=== PATIENT | female | born 1960 | race Caucasian/White ===

== ENCOUNTER 2018-01-24 08:37 | Inpatient (IN) | payer SELFPAY ==
[~2018-01-24] VITALS: Ht 157.5 cm; Wt 74.0 kg
--- NOTE | ~2018-01-24 | EKG ---
[place], [place] ELECTROCARDIOGRAM REPORT NAME: HELEN HARDING UNIT #: [id number] ROOM: 403 DOCTOR: RYAN DRAFT REPORT BIRTHDATE: [birth year] [facility] Test Date: 2018-01-24 Test Time: 11:43:13 Pat Name: HELEN HARDING Department: Room: 403 Gender: F Pipe Connector: JANE : 1960 Requested By: ALFREDO BUSTAMANTE Order Number: [id number] Reading MD: Lonnie Roman MD Measurements Intervals [place] Rate: 67 P: 21 VT: 177 QRS: 43 QRSD: 68 T: 45 QT: 393 QTc: 415 Interpretive Statements Sinus rhythm Borderline low voltage, limb leads Electronically Signed On 01-25-2018 9:38:43 PDT by Lonnie Roman MD CM:EKGRPT:ELECTROCARDIOGRAM REPORT [id number] ALFREDO DAVIS DRAFT REPORT ALFREDO BUSTAMANTE M.D.
--- NOTE | ~2018-01-24 | EKG ---
[place], [place] ELECTROCARDIOGRAM REPORT NAME: HELEN HARDING UNIT #: [id number] ROOM: 403 DOCTOR: RYAN DRAFT REPORT BIRTHDATE: [birth year] [facility] Test Date: 2018-01-24 Test Time: 08:50:18 Pat Name: HELEN HARDING Department: Room: 403 Gender: F Director Payer: KURT : 1960 Requested By: ALFREDO BUSTAMANTE Order Number: [id number] Reading MD: Lonnie Roman MD Measurements Intervals [place] Rate: 89 P: 14 IN: 160 QRS: 50 QRSD: 78 T: 40 QT: 355 QTc: 432 Interpretive Statements Sinus rhythm Borderline low voltage Normal QTc interval Electronically Signed On 01-25-2018 9:38:22 PDT by Lonnie Roman MD CM:EKGRPT:ELECTROCARDIOGRAM REPORT [id number] ALFREDO DAVIS DRAFT REPORT ALFREDO BUSTAMANTE M.D.
--- NOTE | ~2018-01-24 | CON ---
[place], [place] REPORT OF CONSULTATION NAME: HELEN HARDING UNIT #: [id number] ROOM: 403 DOCTOR: POLLY MAZARIEGOS MD BIRTHDATE: [birth year] DOS: 01/24/2018 GASTROENDOSCOPIC CONSULTATION REPORT HISTORY OF PRESENT ILLNESS: This is a 57-year-old patient who has presented with chief complaint of atypical chest pain, left pectoral pain. She says she was awakened with it, it was radiating to her left shoulder. She was expressing concern that she had cold. At the time of admission to the Emergency Room, her white blood cell was 9, H and H of 13 and 45. Differential within normal limit. Lactic acid normal. INR 0.9. Comprehensive metabolic panel, electrolyte balance, troponin negative; lipase 143. Chest x-ray was unremarkable. Troponin repeatedly negative. PAST MEDICAL HISTORY: History of gastroesophageal reflux disease, chronic constipation, old history of DVT, gastritis. PAST SURGICAL HISTORY: Laminectomy, hernia repair, gallbladder, and splenectomy. SOCIAL HISTORY: Smoker. Social alcohol consumer. Consumes one can of carbonated soda daily. FAMILY HISTORY: Noncontributory. MEDICATION: List has been reviewed including prednisone. ALLERGIES: STEROIDS, VIOXX, ____. MEDICATIONS: At home has included ibuprofen in addition to aspirin. Ibuprofen has been b.i.d. REVIEW OF SYSTEMS: HEENT: Denies double vision, blurred vision. RESPIRATORY: Denies acute shortness of breath. CARDIOVASCULAR: Denies acute chest pain, atypical chest pain, however. DIGESTIVE SYSTEM: No hematemesis, no hematochezia. PHYSICAL EXAMINATION: GENERAL: Nontoxic patient. HEENT: Head normocephalic, nontraumatic. Eyes: Pupils round, reactive. Sclerae nonicteric. Mouth and buccal mucosa benign. NECK: Supple, no thyromegaly, no cervical lymphadenopathy. CHEST: Symmetric anatomy, equal expansion. No wheeze, no rhonchi. HEART: Normal sinus rhythm, no gallop, no murmur. ABDOMEN: Obese, soft. No hepato-organomegaly. Bowel sounds present. No pulsatile mass. EXTREMITIES: Dry. No cyanosis, no pedal edema. NEUROLOGIC: Fully alert, oriented to time, place, person. IMPRESSION: Atypical chest pain, ruling out hiatal hernia, reflux as etiology, [place], [place] REPORT OF CONSULTATION NAME: HELEN HARDING UNIT #: [id number] ROOM: 403 DOCTOR: DELILAH NARAYANAN,POLLY BIRTHDATE: [birth year] ruling out gastritis, particularly secondary to ibuprofen and aspirin intake in addition to contribution for nicotine and caffeinated beverages, old history of deep venous thrombosis and pulmonary embolism. PLAN AND DISCUSSION: Protonix 40 mg IV every day, Reglan 5 mg a.c. dinner. Continuation with cardiac diet and pain management. Organizing outpatient endoscopy after she is discharged. Other adjunctive diagnoses as outlined in paragraph past medical, surgical history. Labs reviewed, records reviewed. As far as GI system is concerned, she is okay for outpatient followup. POLLY MAZARIEGOS MD CM:CONSTR:REPORT OF CONSULTATION 1637 01/24/18 [id number] interface
--- NOTE | ~2018-01-24 | EKG ---
[place], [place] ELECTROCARDIOGRAM REPORT NAME: HELEN HARDING UNIT #: [id number] ROOM: 403 DOCTOR: RYAN DRAFT REPORT BIRTHDATE: [birth year] [facility] Test Date: 2018-01-24 Test Time: 14:49:21 Pat Name: HELEN HARDING Department: Room: 403 Gender: F Frame Nailer: Karena Mane : 1960 Requested By: ALFREDO BUSTAMANTE Order Number: [id number] Reading MD: Lonnie Roman MD Measurements Intervals [place] Rate: 63 P: 54 FL: 198 QRS: 47 QRSD: 76 T: 49 QT: 421 QTc: 431 Interpretive Statements Sinus rhythm Low voltage, extremity leads Probable anteroseptal infarct, old Baseline wander in lead(s) I,aVR,aVL,V4,V5 Electronically Signed On 01-26-2018 9:28:45 PDT by Lonnie Roman MD CM:EKGRPT:ELECTROCARDIOGRAM REPORT [id number] ALFREDO DAVIS DRAFT REPORT ALFREDO BUSTAMANTE M.D.
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
[~2018-01-24 08:37] MED LIST: ASPIRIN CHEWABL81 MG PO; CLINDAMYCIN HC300 MG PO; Cleocin150 MG PO; EFFEXOR XR37.5 M1 PO; EFFEXOR75 MG PO; IRON325 M1 PO; LEVOFLOXACIN500 MG PO; LEVOTHROID0.075 MG PO; MECLIZINE HCL25 M2 PO; MOTRIN800 MG PO; NEXIUM20 MG PO; NEXIUM40 MG PO; PEPCID20 MG PO; PRAVACHOL10 MG PO; PRAVACHOL20 MG PO; PREVACID30 M1 PO; PROTONIX40 MG PO; TESSALON PERLE200 MG PO; TRAZODO50 MG PO; ULTRAM50 MG PO; VERAPAMIL HCL40 MG PO; XANAX0.25 MG PO; ZITHROMAX250 MG PO
[2018-01-24 08:38] VITALS: BP 133/80
[2018-01-24] MEDS ORDERED: IBU800 M2 PO (08:51)
[2018-01-24 08:58] LABS: BASO # 0.1 10*3/uL (0.0-0.1); BASO % 0.6 % (0.0-1.0); EOS # 0.3 10*3/uL (0.0-0.4); EOS % 3.1 % (1.0-4.0); HEMATOCRIT 45.7 % (37.0-47.0); HEMOGLOBIN 13.9 g/dl (12.0-16.0); LYMPH % 42.4 % (27.0-41.0); MEAN CORPUSCULAR HGB 29.2 pg (27.0-31.0); MEAN CORPUSCULAR HGB CONC 30.4 g/dl (33.0-37.0); MONO # 0.6 10*3/uL (0.1-1.0); MONO % 6.7 % (3.0-9.0); NEUT # 4.4 10*3/uL (2.3-7.9); NEUT % 46.8 % (47.0-73.0); PLATELET COUNT AUTOMATED 662 10*3/uL (130-400); RED BLOOD COUNT 4.76 10*6/uL (4.10-5.10); RED CELL DISTRI WIDTH 14.9 % (0-14.5); WHITE BLOOD COUNT 9.4 10*3/uL (4.8-10.8)
[2018-01-24 09:10] LABS: ACT PARTIAL THROMBO TIME 25.4 SECONDS (20.8-31.5); INTERNATIONAL NORM RATIO 0.9 (2.0-3.5)
[2018-01-24 09:13] LABS: ALBUMIN 3.1 gm/dl (3.1-4.5); BUN 8 mg/dl (7-24); CHLORIDE 103 mmol/L (98-107); CREATININE 0.89 mg/dL (0.55-1.02); POTASSIUM 4.3 mmol/L (3.5-5.1); SGOT/AST 35 IU/L (3-35); SGPT/ALT 44 U/L (12-78); SODIUM 141 mmol/L (136-145); TOTAL PROTEIN 8.1 gm/dL (6.4-8.2)
[2018-01-24 09:15] LABS: ALKALINE PHOSPHATASE 92 U/L (45-117)
[2018-01-24 09:16] LABS: TROPONIN I < 0.015 ng/ml (<0.045)
[2018-01-24 10:04] VITALS: BP 145/86
[2018-01-24 10:39] VITALS: BP 136/75
[2018-01-24 12:00] VITALS: BP 124/74
[2018-01-24 16:00] VITALS: BP 99/45
[2018-01-24 20:00] VITALS: BP 101/58; BP 102/58; BP 131/64
[2018-01-25] VITALS: BP 103/52
[2018-01-25 06:10] LABS: BASO # 0.1 10*3/uL (0.0-0.1); BASO % 0.6 % (0.0-1.0); EOS # 0.3 10*3/uL (0.0-0.4); EOS % 3.2 % (1.0-4.0); HEMOGLOBIN 12.9 g/dl (12.0-16.0); LYMPH # 4.2 10*3/uL (1.3-4.4); LYMPH % 42.1 % (27.0-41.0); MEAN CELL VOLUME 94.4 fl (81.0-99.0); MEAN CORPUSCULAR HGB CONC 30.7 g/dl (33.0-37.0); MEAN PLATELET VOLUME 9.1 fl (9.6-12.3); MONO # 0.8 10*3/uL (0.1-1.0); MONO % 7.7 % (3.0-9.0); NEUT # 4.6 10*3/uL (2.3-7.9); NEUT % 46.2 % (47.0-73.0); PLATELET COUNT AUTOMATED 613 10*3/uL (130-400); RED BLOOD COUNT 4.45 10*6/uL (4.10-5.10); RED CELL DISTRI WIDTH 14.9 % (0-14.5)
[2018-01-25 06:31] LABS: CHLORIDE 104 mmol/L (98-107); POTASSIUM 4.7 mmol/L (3.5-5.1); SODIUM 139 mmol/L (136-145)
[2018-01-25 06:47] LABS: ALKALINE PHOSPHATASE 88 U/L (45-117); BUN 10 mg/dl (7-24); CHOLESTEROL 231 mg/dL (<200); CREATININE 0.93 mg/dL (0.55-1.02); FREE T4 0.89 ng/dl (0.76-1.46); HDL CHOLESTEROL 31 mg/dl (40-60); LDL CHOLESTEROL 122 mg/dL (9-159); PHOSPHOROUS 3.3 mg/dL (2.5-4.9); SGOT/AST 21 IU/L (3-35); SGPT/ALT 40 U/L (12-78); TOTAL PROTEIN 7.6 gm/dL (6.4-8.2); TRIGLYCERIDES 390 mg/dl (<150); VLDL CHOLESTEROL 78 mg/dL (6-40)
[2018-01-25 07:46] LABS: VITAMIN D, 25-HYDROXY 34.3 ng/mL (30-100)
[2018-01-25 08:00] VITALS: BP 141/61
[2018-01-25 12:00] VITALS: BP 131/75
[2018-01-25 16:00] VITALS: BP 131/80
[2018-01-25 20:00] VITALS: BP 135/77
[2018-01-26] VITALS: BP 102/67
[2018-01-26 06:00] LABS: BASO # 0.1 10*3/uL (0.0-0.1); BASO % 0.6 % (0.0-1.0); EOS # 0.4 10*3/uL (0.0-0.4); EOS % 3.9 % (1.0-4.0); HEMATOCRIT 43.3 % (37.0-47.0); HEMOGLOBIN 13.2 g/dl (12.0-16.0); LYMPH % 38.1 % (27.0-41.0); MEAN CELL VOLUME 96.2 fl (81.0-99.0); MEAN CORPUSCULAR HGB 29.3 pg (27.0-31.0); MEAN CORPUSCULAR HGB CONC 30.5 g/dl (33.0-37.0); MEAN PLATELET VOLUME 9.1 fl (9.6-12.3); MONO # 0.8 10*3/uL (0.1-1.0); MONO % 7.9 % (3.0-9.0); NEUT # 5.2 10*3/uL (2.3-7.9); NEUT % 49.1 % (47.0-73.0); PLATELET COUNT AUTOMATED 629 10*3/uL (130-400); RED CELL DISTRI WIDTH 15.1 % (0-14.5); WHITE BLOOD COUNT 10.6 10*3/uL (4.8-10.8)
[2018-01-26 06:02] LABS: BUN 11 mg/dl (7-24); CHLORIDE 104 mmol/L (98-107); CREATININE 0.87 mg/dL (0.55-1.02); POTASSIUM 4.9 mmol/L (3.5-5.1); SODIUM 140 mmol/L (136-145)
[2018-01-26 08:00] VITALS: BP 127/66
[2018-01-26] MEDS ORDERED: XARE20MG PO (09:31)
[2018-01-26] MEDS ORDERED: METOCLOPRAMIDE H5 M1 PO (09:31)
== END 2018-01-26 11:29 | disposition home or self-care (01) | DRG 313 ==
LOC: ED 08:37 → 4E 10:37
PROVIDERS: Emergency Medicine; Internal Medicine
DX: R07.89 Other chest pain (principal); J93.9 Pneumothorax, unspecified; Z86.718 Personal history of other venous thrombosis and embolism; D47.3 Essential (hemorrhagic) thrombocythemia; R00.0 Tachycardia, unspecified; R05 Cough; I10 Essential (primary) hypertension; R73.9 Hyperglycemia, unspecified; I00 Rheumatic fever without heart involvement; K21.9 Gastro-esophageal reflux disease without esophagitis; J06.9 Acute upper respiratory infection, unspecified; G43.009 Migraine without aura, not intractable, without status migrainosus; E03.9 Hypothyroidism, unspecified; E66.9 Obesity, unspecified; F41.9 Anxiety disorder, unspecified; F32.9 Major depressive disorder, single episode, unspecified; M79.7 Fibromyalgia; T39.315A Adverse effect of propionic acid derivatives, initial encounter; T39.015A Adverse effect of aspirin, initial encounter; Y92.89 Other specified places as the place of occurrence of the external cause; Z72.0 Tobacco use; Z78.9 Other specified health status; Z71.6 Tobacco abuse counseling; Z88.8 Allergy status to other drugs, medicaments and biological substances; Z79.899 Other long term (current) drug therapy; Z79.82 Long term (current) use of aspirin; Z90.49 Acquired absence of other specified parts of digestive tract; Z86.711 Personal history of pulmonary embolism; Z68.31 Body mass index [BMI] 31.0-31.9, adult

== ENCOUNTER 2018-06-25 18:52 | Emergency (ER) | payer SELFPAY ==
[~2018-06-25] VITALS: Ht 157.4 cm; Wt 73.5 kg
[2018-06-25 18:52] VITALS: BP 200/102
[~2018-06-25 18:52] MED LIST changes: +IBU800 M2 PO; +METOCLOPRAMIDE H5 M1 PO; +XARE20MG PO
== END 2018-06-25 21:11 | disposition home or self-care (01) ==
LOC: ED 18:52
DX: S16.1XXA Strain of muscle, fascia and tendon at neck level, initial encounter (principal); S39.012A Strain of muscle, fascia and tendon of lower back, initial encounter; S70.312A Abrasion, left thigh, initial encounter; S70.212A Abrasion, left hip, initial encounter; S79.912A Unspecified injury of left hip, initial encounter; S09.90XA Unspecified injury of head, initial encounter; E03.9 Hypothyroidism, unspecified; I10 Essential (primary) hypertension; F17.200 Nicotine dependence, unspecified, uncomplicated; Z88.1 Allergy status to other antibiotic agents; Z88.6 Allergy status to analgesic agent; Z88.8 Allergy status to other drugs, medicaments and biological substances; Z79.899 Other long term (current) drug therapy; Z79.82 Long term (current) use of aspirin; Z86.718 Personal history of other venous thrombosis and embolism; W10.9XXA Fall (on) (from) unspecified stairs and steps, initial encounter; Y93.89 Activity, other specified; Y92.89 Other specified places as the place of occurrence of the external cause; Y99.8 Other external cause status

== ENCOUNTER 2024-02-02 06:06 | Emergency (ER) | payer SELFPAY ==
[~2024-02-02] VITALS: Ht 157.4 cm; Wt 83.9 kg
[2024-02-02] MEDS ORDERED: MORPHINE Sulfate 2 MG/ML SYR IV ONE (06:30)
[2024-02-02 06:34] LABS: BASO # 0.1 10*3/uL (0.0-0.1); BASO % 0.4 % (0.0-1.0); EOS # 0.4 10*3/uL (0.0-0.4); EOS % 3.5 % (1.0-4.0); HEMATOCRIT 44.4 % (37.0-47.0); LYMPH # 4.2 10*3/uL (1.3-4.4); LYMPH % 36.4 % (27.0-41.0); MEAN CELL VOLUME 93.7 fl (81.0-99.0); MEAN CORPUSCULAR HGB CONC 33.1 g/dl (33.0-37.0); MONO # 0.8 10*3/uL (0.1-1.0); MONO % 7.3 % (3.0-9.0); NEUT % 52.1 % (47.0-73.0); PLATELET COUNT AUTOMATED 383 10*3/uL (130-400); RED BLOOD COUNT 4.74 10*6/uL (4.10-5.10); RED CELL DISTRI WIDTH 14.1 % (0-14.5); WHITE BLOOD COUNT 11.5 10*3/uL (4.8-10.8)
[2024-02-02 06:44] LABS: ACT PARTIAL THROMBO TIME 25.2 SECONDS (20.0-32.1)
[2024-02-02 06:55] LABS: ALKALINE PHOSPHATASE 132 U/L (46-116); BUN 12 mg/dl (9-23); CHLORIDE 105 mmol/L (98-107); POTASSIUM 4.1 mmol/L (3.4-5.1); SGPT/ALT 38 U/L (5-49); TOTAL PROTEIN 7.1 gm/dL (6.0-8.0)
[2024-02-02] MEDS ORDERED: IOHEXOL 350 MG/ML 100 ML VIAL IV ONE (07:25)
[2024-02-02] MEDS ORDERED: SODIUM CHLORIDE 0.9% 100 ML BAG IV ONE (07:25)
[2024-02-02 08:29] VITALS: BP 155/88
[2024-02-02] MEDS ORDERED: PRENATAL PLUS1 EAC2 PO (08:31)
[2024-02-02] MEDS ORDERED: EFFEXOR XR75 M1 PO (08:31)
[2024-02-02] MEDS ORDERED: MELOXICAM15 MG PO (09:11)
[2024-02-02] MEDS ORDERED: CYCLOBENZAPRINE10 MG PO (09:11)
== END 2024-02-02 09:31 | disposition home or self-care (01) ==
LOC: ED 06:06
PROVIDERS: Internal Medicine
DX: R07.89 Other chest pain (principal); R11.0 Nausea; R06.02 Shortness of breath; K21.9 Gastro-esophageal reflux disease without esophagitis; M19.90 Unspecified osteoarthritis, unspecified site; M79.7 Fibromyalgia; G43.909 Migraine, unspecified, not intractable, without status migrainosus; F17.200 Nicotine dependence, unspecified, uncomplicated; Z88.6 Allergy status to analgesic agent; Z88.1 Allergy status to other antibiotic agents; Z88.8 Allergy status to other drugs, medicaments and biological substances; Z90.49 Acquired absence of other specified parts of digestive tract; Z98.890 Other specified postprocedural states